=== PATIENT | male | born 1960 ===

== ENCOUNTER 2018-09-07 09:12 | Emergency (ER) | payer BC ==
[2018-09-07 09:28] VITALS: BMI 27.8
[2018-09-07 09:29] VITALS: O2SAT 99
[2018-09-07] MEDS ORDERED: Sodium Chloride 0.9% 1,000 ML IV STA (10:27)
--- NOTE | 2018-09-07 10:47 | ED PDOC ---
HPI: Back Time Seen by Provider: 09/07/18 10:07 Chief Complaint (Nursing): Back Pain Chief Complaint (Provider): Back Pain History Per: Patient History/Exam Limitations: no limitations Onset/Duration Of Symptoms: Days (x 2) Current Symptoms Are (Timing): Still Present Quality Of Discomfort: "Pain" Associated Symptoms: None Additional Complaint(s): 57 year old male with a history of gastritis presents to the ED for evaluation of right sided abdominal pain radiating to his back, onset yesterday. Patient reports Advil provided some relief. He also reports a few episodes of mild non- bloody diarrhea. Otherwise, patient offers no other complaints. Denies nausea, vomiting, urinary frequency, incontinence and dysuria. PMD: Dr. Roosevelt Kendrick Past Medical History Reviewed: Historical Data, Nursing Documentation, Vital Signs Vital Signs: Last Vital Signs Temp 98.2 F 09/07/18 09:27 Pulse 59 L 09/07/18 09:27 Resp 18 09/07/18 09:27 BP 174/88 H 09/07/18 09:27 Pulse Ox 99 09/07/18 09:27 - Medical History PMH: Gastritis - Surgical History Surgical History: Hernia Repair (right sided inguinal) - Family History Family History: States: Unknown Family Hx - Immunization History Hx Tetanus Toxoid Vaccination: No Hx Influenza Vaccination: No Hx Pneumococcal Vaccination: No - Home Medications Home Medications: Ambulatory Orders Medication Instructions Recorded Naproxen [Naprosyn] 500 mg PO BID PRN #30 tab 04/08/16 - Allergies Allergies/Adverse Reactions: Allergies Allergy/AdvReac Type Severity Reaction Status Date / Time No Known Allergies Allergy Verified 04/08/16 15:26 Review of Systems ROS Statement: Except As Marked, All Systems Reviewed And Found Negative Gastrointestinal: Positive for: Abdominal Pain Musculoskeletal: Positive for: Back Pain Physical Exam - Reviewed Nursing Documentation Reviewed: Yes Vital Signs Reviewed: Yes - Physical Exam Appears: Positive for: No Acute Distress, Uncomfortable Head Exam: Positive for: ATRAUMATIC, NORMAL INSPECTION, NORMOCEPHALIC Skin: Positive for: Normal Color, Warm, Dry Eye Exam: Positive for: EOMI, Normal appearance, PERRL Neck: Positive for: Normal, Painless ROM, Supple Cardiovascular/Chest: Positive for: Regular Rate, Rhythm. Negative for: Murmur Respiratory: Positive for: Normal Breath Sounds. Negative for: Respiratory Distress Gastrointestinal/Abdominal: Positive for: Normal Exam, Soft. Negative for: Tenderness Back: Positive for: R CVA Tenderness Extremity: Positive for: Normal ROM (x 4). Negative for: Deformity Neurological/Psych: Positive for: Awake, Alert, Normal Tone, Oriented (x 3). Negative for: Motor/Sensory Deficits - Laboratory Results Result Diagrams: 09/07/18 10:40 09/07/18 10:40 - ECG O2 Sat by Pulse Oximetry: 99 (RA) Pulse Ox Interpretation: Normal - Progress Re-evaluation Time: 14:41 Condition: Re-examined, Improved Medical Decision Making Medical Decision Makin:26 Impression: right flank pain Differential dxs include but are not limited to: kidney stones, UTI, less likely musculoskeletal and appendicitis Initial PlanL --CT Abd & Pelvis --CBC --BMP --UA --Urine dip --Toradol 30 mg IM 11:50 CT Abd & Pelvis FINDINGS: LOWER THORAX: The visualized lungs are clear. LIVER: Mild hepatomegaly. No gross lesion or ductal dilatation. GALLBLADDER AND BILE DUCTS: Well distended. No calcified gallstones. No common bile duct dilatation. PANCREAS: Normal in size. No gross lesion or ductal dilatation. SPLEEN: Mild splenomegaly. ADRENALS: Normal in size. No discrete nodule. KIDNEYS AND URETERS: Both kidneys are normal in size. No hydronephrosis or nephrolithiasis. VASCULATURE: Normal in caliber. No aortic aneurysm. No aortic atherosclerotic calcification or mural plaque present. BOWEL: Evaluation of the bowel is limited in the absence of oral contrast. The small bowel loops are normal in caliber. Scattered left colonic diverticulosis without CT evidence for acute diverticulitis. No bowel dilatation or wall thickening. No bowel obstruction. APPENDIX: Normal appendix. PERITONEUM: No free fluid. No free air. LYMPH NODES: No enlarged lymph nodes. BLADDER: Well distended and normal in appearance. REPRODUCTIVE: There is mild enlargement of the prostate gland. BONES: No acute fracture. Redemonstration of chronic bilateral pars interarticularis defects at L5 with grade 1 anterior listhesis of L5 on S1. Advanced degenerative disc disease at L4-5 and L5-S1 with disc desiccation. OTHER FINDINGS: There are bilateral small fat containing inguinal hernias. IMPRESSION: No evidence for nephrolithiasis, hydronephrosis or obstructive uropathy. Scattered left colonic diverticulosis without CT evidence for acute diverticulitis. Mild hepatosplenomegaly. Mild enlargement of the prostate gland. Please correlate with PSA levels. Scribe Attestation: Documented by Katia Crocker, acting as a scribe Norma Raya MD Provider Scribe Attestation: All medical record entries made by the Scribe were at my direction and personally dictated by me. I have reviewed the chart and agree that the record accurately reflects my personal performance of the history, physical exam, medical decision making, and the department course for this patient. I have also personally directed, reviewed, and agree with the discharge instructions and disposition Disposition - Clinical Impression Clinical Impression: Flank pain, acute - Patient ED Disposition Is Patient to be Admitted: No Doctor Will See Patient In The: Office Counseled Patient/Family Regarding: Studies Performed, Diagnosis, Need For Followup - Disposition Referrals: Roosevelt Kendrick MD [Family Provider] - Disposition: Routine/Home Disposition Time: 14:42 Condition: IMPROVED Additional Instructions: BEBE BUNCH, thank you for letting us take care of you today. Your provider was Michelle Raya MD and you were treated for BACK PAIN, ABD PAIN. The emergency medical care you received today was directed at your acute symptoms. If you were prescribed any medication, please fill it and take as directed. It may take several days for your symptoms to resolve. Return to the Emergency Department if your symptoms worsen, do not improve, or if you have any other problems. Please contact your doctor or call one of the physicians/clinics you have been referred to that are listed on the Patient Visit Information form that is included in your discharge packet. Bring any paperwork you were given at discharge with you along with any medications you are taking to your follow up visit. Our treatment cannot replace ongoing medical care by a primary care provider outside of the emergency department. Thank you for allowing the [facility] team to be part of your care today. If you had an X-Ray or CT scan: A Radiologist will review the ED reading if any change in treatment is needed we will contact you. Instructions: Flank Pain Forms: [facility] ([facility]wana) Print Language: CROATIAN
[2018-09-07 11:08] LABS: SQUAMOUS EPITHIAL < 1 /hpf (0-5); URINE BILIRUBIN NEGATIVE (NEGATIVE); URINE BLOOD NEGATIVE (NEGATIVE); URINE COLOR YELLOW (YELLOW); URINE GLUCOSE (UA) NEG (NEGATIVE); URINE LEUKOCYTE ESTERASE NEG Leu/uL (Negative); URINE PROTEIN NEGATIVE (NEGATIVE); URINE UROBILINOGEN 0.2-1.0 mg/dL (0.2-1.0)
[2018-09-07 11:09] LABS: URINE CLARITY SLIGHT-CLOUDY (Clear)
[2018-09-07 11:11] LABS: BASO % 0.3 % (0.0-2.0); EOS # 0.1 K/uL (0.0-0.7); EOS % 0.8 % (0.0-4.0); HEMOGLOBIN 14.4 g/dL (12.0-18.0); LYMPH # 1.2 K/uL (1.0-4.3); LYMPH % 12.2 % (20.0-40.0); MEAN CELL VOLUME 93.3 fl (80.0-94.0); MEAN CORPUSCULAR HEMOGLOBIN 31.5 pg (27.0-31.0); MEAN CORPUSCULAR HGB CONC 33.8 g/dL (33.0-37.0); MEAN PLATELET VOLUME 8.3 fl (7.2-11.7); MONO # 0.7 K/uL (0.0-0.8); MONO % 7.5 % (0.0-10.0); NEUT # 7.7 K/uL (1.8-7.0); NEUT % 79.2 % (50.0-75.0); NRBC % 0.1 % (0.0-0.0); RBC 4.57 Mil/uL (4.40-5.90); RED CELL DISTRIBUTION WIDTH 12.8 % (11.5-14.5); WHITE BLOOD COUNT 9.8 K/uL (4.8-10.8)
[2018-09-07 11:13] LABS: BLOOD UREA NITROGEN 20 mg/dl (9-20); CALCIUM 9.5 mg/dL (8.4-10.2); GFR NON-AFRICAN AMERICAN > 60
--- NOTE | 2018-09-07 11:55 | CT ---
Date of service: 09/07/2018 PROCEDURE: CT Abdomen and Pelvis without intravenous contrast HISTORY: Right flank pain COMPARISON: 04/08/2016. TECHNIQUE: CT scan of the abdomen and pelvis was performed without administration of intravenous contrast. Oral contrast was not administered. Coronal and sagittal reformatted images were obtained. Radiation dose: Total exam DLP = 781.52 mGy-cm. This CT exam was performed using one or more of the following dose reduction techniques: Automated exposure control, adjustment of the mA and/or kV according to patient size, and/or use of iterative reconstruction technique. FINDINGS: LOWER THORAX: The visualized lungs are clear. LIVER: Mild hepatomegaly. No gross lesion or ductal dilatation. GALLBLADDER AND BILE DUCTS: Well distended. No calcified gallstones. No common bile duct dilatation. PANCREAS: Normal in size. No gross lesion or ductal dilatation. SPLEEN: Mild splenomegaly. ADRENALS: Normal in size. No discrete nodule. KIDNEYS AND URETERS: Both kidneys are normal in size. No hydronephrosis or nephrolithiasis. VASCULATURE: Normal in caliber. No aortic aneurysm. No aortic atherosclerotic calcification or mural plaque present. BOWEL: Evaluation of the bowel is limited in the absence of oral contrast. The small bowel loops are normal in caliber. Scattered left colonic diverticulosis without CT evidence for acute diverticulitis. No bowel dilatation or wall thickening. No bowel obstruction. APPENDIX: Normal appendix. PERITONEUM: No free fluid. No free air. LYMPH NODES: No enlarged lymph nodes. BLADDER: Well distended and normal in appearance. REPRODUCTIVE: There is mild enlargement of the prostate gland. BONES: No acute fracture. Redemonstration of chronic bilateral pars interarticularis defects at L5 with grade 1 anterior listhesis of L5 on S1. Advanced degenerative disc disease at L4-5 and L5-S1 with disc desiccation. OTHER FINDINGS: There are bilateral small fat containing inguinal hernias. IMPRESSION: No evidence for nephrolithiasis, hydronephrosis or obstructive uropathy. Scattered left colonic diverticulosis without CT evidence for acute diverticulitis. Mild hepatosplenomegaly. Mild enlargement of the prostate gland. Please correlate with PSA levels.
[2018-09-07 17:42] VITALS: TEMP 98.4
[2018-09-07 17:43] VITALS: BP 160/70; PULSE 67
[2018-09-07 17:44] VITALS: RESP 100
== END 2018-09-07 15:25 | disposition home or self-care (01) ==
LOC: H.ER 09:12
DX: R10.9 Unspecified abdominal pain (principal); K57.30 Diverticulosis of large intestine without perforation or abscess without bleeding; N40.0 Benign prostatic hyperplasia without lower urinary tract symptoms
CPT/HCPCS: 74176; 80048; 81003; 85025; 96374; 99283; J1885; J7030